=== PATIENT | male | born 1995 | race Caucasian/White ===

== ENCOUNTER 2021-07-04 12:10 | Emergency (ER) | payer OTHER ==
[2021-07-04 12:16] VITALS: TEMP 98; BMI 23.6
[2021-07-04 14:51] VITALS: BP 122/65; PULSE 76
== END 2021-07-04 14:45 | disposition home or self-care (01) ==
LOC: FER 12:10
DX: T40.2X1A Poisoning by other opioids, accidental (unintentional), initial encounter (principal)
CPT/HCPCS: 99281-25